=== PATIENT | male | born 1950 | race Caucasian/White ===

== ENCOUNTER → 2024-09-08 | Day surgery (SDC) | payer BC, MEDICARE ==
[2024-09-04 12:28] LABS: BASOPHILS # (AUTO) 0.1 (0.0-0.1); BASOPHILS % 0.6 % (0.0-1.0); EOSINOPHILS # (AUTO) 0.1 (0.0-0.4); EOSINOPHILS % 1.3 % (0.0-6.0); HEMATOCRIT 49.3 % (38.2-49.6); HEMOGLOBIN 16.5 g/dL (14.0-18.0); LYMPHOCYTES # (AUTO) 3.2 (1.0-3.2); LYMPHOCYTES % 34.1 % (18.0-39.1); MEAN CORPUSCULAR HEMOGLOBIN 32.9 pg (28-32); MEAN CORPUSCULAR HGB CONC 33.5 g/dL (31-35); MEAN CORPUSCULAR VOLUME 98.2 fL (81-99); MONOCYTES # (AUTO) 0.7 (0.2-0.8); MONOCYTES % 7.2 % (4.4-11.3); NEUTROPHILS # (AUTO) 5.4 (2.1-6.9); NEUTROPHILS % 56.5 % (38.7-80.0); PLATELET COUNT 201 x10e3/uL (140-360); RED BLOOD COUNT 5.02 x10e6/uL (4.3-5.7); RED CELL DISTRIBUTION WIDTH 12.5 % (11.7-14.4)
[~2024-09-08] MED LIST: BENTYL20 MG PO; BENZONATATE200 MG PO; CELEBREX50 MG PO; FENTANYL CITRATE/PF 100MCG/2 ML INJ ONE; HALOG30 GM TP; HYDRALAZINE; HYDROCODON-ACE1 EAC9 PO; HYDROCODONE-AP1 EACH PO; KONSYL FIBER625 MG PO; LACTATED RINGER'S 1,000 ML ONE; LIDOCAINE HCL 2% LOCAL INJ 5 ML SDV VIAL INJ ONE; LORTAB 7.5-5001 EACH PO; LOVENOX40 MG/0.4 INJ; METOCLOPRAMIDE HCL 10 MG/2ML VIAL ONE; MULTIVITAMIN PO; NEURONTIN100 MG PO; NORCO 5-325 TA1 EACH PO; OXYCODONE-ACET1 EAC3 PO; PENTOXIFYLLINE400 MG PO; PROPOFOL IV EMULSION 50 ML IV ONE; REGLAN10 MG PO; ROSUVASTATIN CA20 MG PO; TEMAZEPAM; TIZANIDINE HCL4 M1 PO; Z.0.HYDROXYZINE HCL2 PO; Z.0.NEXIUM40 MG PO; ZOLPIDEM TARTRA10 MG PO
[2024-09-08 10:04] VITALS: TEMP 98.4
[2024-09-08 10:26] VITALS: BP 134/86; PULSE 81; RESP 18; O2SAT 97
== END | disposition home or self-care (01) ==
LOC: ENDO 07:46
PROVIDERS: ATTEND Internal Medicine Gastroenterology
DX: R13.10 Dysphagia, unspecified (principal); K31.89 Other diseases of stomach and duodenum; T18.128A Food in esophagus causing other injury, initial encounter; E78.5 Hyperlipidemia, unspecified; K58.9 Irritable bowel syndrome, unspecified; Z88.1 Allergy status to other antibiotic agents; Z88.0 Allergy status to penicillin; Z88.8 Allergy status to other drugs, medicaments and biological substances; Z01.810 Encounter for preprocedural cardiovascular examination; Z01.812 Encounter for preprocedural laboratory examination; Z79.899 Other long term (current) drug therapy
CPT/HCPCS: 36415; 43235; 85025; 93005; J2003; J2470; J2704; J2765; J3010; J7121